=== PATIENT | male | born 1995 | race African-American/Black ===

== ENCOUNTER 2016-09-12 22:44 | Emergency (ER) | payer OTHER ==
[~2016-09-12] VITALS: Ht 172.7 cm; Wt 111.1 kg
[2016-09-12 22:50] VITALS: BP 184/72
[2016-09-12] MEDS ORDERED: HYDR-2758 PO (23:28)
--- NOTE | 2016-09-12 23:28 | PHYS DOC ---
Past Medical History Past Medical History: No Pertinent History Past Surgical History: Other Additional Past Surgical Histo: Eye Alcohol Use: None Drug Use: None Adult General Chief Complaint Chief Complaint: GROIN PAIN HPI HPI Patient is a 21 year old male who presents with left anterior groin/thigh pain since playing basketball a couple days ago. He notes constant achy pain, worse with flexion of hip. He denies numbness, tingling, weakness, fever or chills, leg swelling, discoloration, abdominal pain, testicle pain, scrotal pain, dysuria, diarrhea, constipation, abdominal pain, back pain. Review of Systems Review of Systems Constitutional: Denies fever or chills [] Eyes: Denies change in visual acuity, redness, or eye pain [] HENT: Denies nasal congestion or sore throat [] Respiratory: Denies cough or shortness of breath [] Cardiovascular: No additional information not addressed in HPI [] GI: Denies abdominal pain, nausea, vomiting, bloody stools or diarrhea [] : Denies dysuria or hematuria [] Musculoskeletal: Denies back pain [] Integument: Denies rash or skin lesions [] Neurologic: Denies headache, focal weakness or sensory changes [] Endocrine: Denies polyuria or polydipsia [] Current Medications Current Medications Current Medications Medications (Trade) Dose Ordered Sig/Colby Start Time Stop Time Status Last Admin Dose Admin Acetaminophen/ Hydrocodone Bitart (Lortab 5/325) 1 tab 1X ONCE 09/12/16 23:45 09/12/16 23:45 DC 09/12/16 23:34 1 TAB Allergies Allergies Allergies Coded Allergies Type Severity Reaction Last Updated Verified Penicillins Allergy Intermediate 09/12/16 Yes Physical Exam Physical Exam Constitutional: Well developed, well nourished, no acute distress, non-toxic appearance. [] HENT: Normocephalic, atraumatic, bilateral external ears normal, oropharynx moist, nose normal. [] Eyes: PERRLA, EOMI. [] Neck: Normal range of motion, supple. [] Cardiovascular:Heart rate regular rhythm [] Lungs & Thorax: Bilateral breath sounds clear to auscultation [] Abdomen: Bowel sounds normal, soft, no tenderness. [] Genitourinary: Normal-appearing external genitalia, no rash or discoloration, no swelling, appropriately tender testicles, nontender cords, nontender scrotum , no palpable hernia Skin: Warm, dry, no erythema, no rash. [] Back: No tenderness, no CVA tenderness. [] Extremities: LLE with no obvious deformity or discoloration; Has tenderness along anterior hip flexors with no visual or palpable abnormality; Able to flex/ ex/IR/ER hip, knee full rom, ankle df/pf, toes df/pf; No obvious knee joint laxity with stressing; SILT campoverde/sa/sp/dp/tib distributions; good dp and pt pulses equal bilaterally Neurologic: Alert and oriented X 3, normal motor function, normal sensory function, no focal deficits noted. [] Psychologic: Affect normal, judgement normal, mood normal. [] Current Patient Data Vital Signs Vital Signs Date Time Temp Pulse Resp B/P (MAP) Pulse Ox O2 Delivery O2 Flow Rate FiO2 09/12/16 22:50 98.7 110 18 97 Room Air 98.7 Course & Med Decision Making Course & Med Decision Making Discussed supportive care for likely muscle strain. Return precautions given. He understands and agrees plan. Dragon Disclaimer Dragon Disclaimer This electronic medical record was generated, in whole or in part, using a voice recognition dictation system. Departure Departure Impression: Primary Impression: Left inguinal pain Disposition: HOME, SELF-CARE Condition: STABLE Referrals: NON,STAFF (PCP) Patient Instructions: Muscle Strain, [id number] Additional Instructions: Take Tylenol or ibuprofen as needed for moderate pain. Take hydrocodone as needed for severe pain. Do not drink, drive or operate heavy machinery after taking hydrocodone as it may make you sleepy. Follow-up with your primary care doctor. Return for any concerns. Scripts Hydrocodone Bit/Acetaminophen (HYDROCODONE-APAP 5-325 ) 1 Each Tablet 1 TAB PO PRN Q6HRS Y for PAIN, #6 TAB 0 Refills Prov: Manish COOK MD 09/12/16 Manish COOK MD Sep 12, 2016 23:28
[2016-09-12] MEDS ORDERED: HYDROcodone/APAP 5/325MG 1 TAB TABLET PO ONE (23:45)
== END 2016-09-12 23:36 | disposition home or self-care (01) ==
LOC: ER 22:44
DX: R10.32 Left lower quadrant pain (principal); Z88.0 Allergy status to penicillin
CPT/HCPCS: 99283

== ENCOUNTER 2017-01-08 22:05 | Inpatient (IN) | payer OTHER ==
[~2017-01-08] VITALS: Ht 172.7 cm; Wt 125.8 kg
[~2017-01-08 22:05] MED LIST: HYDR-2758 PO
[2017-01-08] MEDS ORDERED: predniSONE 20 MG TABLET PO ONE (22:30)
[2017-01-08] MEDS ORDERED: ALBUTEROL SULFATE 2.5 MG/3 ML NEBU. CONT NEB ONE (22:30)
[2017-01-08] MEDS ORDERED: IPRATROPIUM BROMIDE 0.5 MG/2.5 ML NEBU. NEB ONE (22:30)
[2017-01-08] MEDS ORDERED: methylPREDNISolone SOD SUCC PF 125 MG/2 ML VIAL. IV ONE (23:45)
[2017-01-08] MEDS ORDERED: IV NORMAL SALINE 1000ML BAG 1,000 ML IV ONE (23:45)
[2017-01-09] MEDS ORDERED: ONDANSETRON PF 4 MG/2 ML VIAL. IV PRN
[2017-01-09] MEDS ORDERED: IV NORMAL SALINE 1000ML BAG 1,000 ML IV SCH
[2017-01-09 00:05] LABS: BASO # 0.1 x10^3/uL (0.0-0.2); BASO % 0 % (0-3); EOS % 3 % (0-3); HEMATOCRIT 46.8 % (39.0-53.0); HEMOGLOBIN 15.6 g/dL (13.0-17.5); LYMPH # 2.5 x10^3/uL (1.0-4.8); LYMPH % 14 % (24-48); MEAN CORPUSCULAR HEMOGLOBIN 30 pg (25-35); MEAN CORPUSCULAR HGB CONC 33 g/dL (31-37); MEAN CORPUSCULAR VOLUME 89 fL (79-100); MONO % 7 % (0-9); NEUT % 75 % (31-73); PLATELET COUNT 285 x10^3/uL (140-400); RED BLOOD COUNT 5.24 x10^6/uL (4.30-5.70); RED CELL DISTRIBUTION WIDTH 13.7 % (11.5-14.5); WHITE BLOOD COUNT 17.3 x10^3/uL (4.0-11.0)
[2017-01-09 00:15] LABS: CALCIUM 9.4 mg/dL (8.5-10.1); CREATININE 0.8 mg/dL (0.7-1.3); GFR 149.1; POTASSIUM 4.1 mmol/L (3.5-5.1)
[2017-01-09 00:21] LABS: ALBUMIN 3.8 g/dL (3.4-5.0); TOTAL BILIRUBIN 0.2 mg/dL (0.2-1.0); TOTAL PROTEIN 7.8 g/dL (6.4-8.2)
--- NOTE | 2017-01-09 00:28 | PHYS DOC ---
Past Medical History Past Medical History: Asthma Past Surgical History: Other Additional Past Surgical Histo: Eye Alcohol Use: None Drug Use: None Adult General Chief Complaint Chief Complaint: ASTHMA HPI HPI Patient is a 21 year old AA male with history of asthma who presents with persistent wheezing, shortness of breath times one day. Patient ran out of his inhaler. States his asthma triggered by seasonal allergies. He is not currently on any medications. No fever chills, nausea vomiting or sweats. No other acute symptoms or complaint. Patient is a nonsmoker. Marijuana wheelchair is [] Review of Systems Review of Systems ROS as per history of present illness. Current Medications Current Medications Current Medications Medications (Trade) Dose Ordered Sig/Colby Start Time Stop Time Status Last Admin Dose Admin Albuterol Sulfate (Ventolin Neb Soln) 10 mg 1X ONCE 01/08/17 22:30 01/08/17 22:31 DC 01/08/17 22:30 10 MG Albuterol/ Ipratropium (Duoneb) 3 ml RTQID 01/09/17 08:00 01/10/17 07:59 Ipratropium Victor (Atrovent) 0.5 mg 1X ONCE 01/08/17 22:30 01/08/17 22:31 DC 01/08/17 22:26 0.5 MG Methylprednisolone Sodium Succinate (SOLU-Medrol 125MG VIAL) 62.5 mg Q6HRS 01/09/17 00:00 Ondansetron HCl (Zofran) 4 mg PRN Q8HRS PRN 01/09/17 00:00 01/09/17 23:59 Prednisone (Prednisone) 60 mg 1X ONCE 01/08/17 22:30 01/08/17 22:31 DC 01/08/17 22:24 60 MG Sodium Chloride 1,000 ml @ 150 mls/hr Q6H40M 01/09/17 00:00 01/09/17 00:01 DC Allergies Allergies Allergies Coded Allergies Type Severity Reaction Last Updated Verified Penicillins Allergy Intermediate 09/12/16 Yes egg Allergy Unknown 01/08/17 Yes Physical Exam Physical Exam Constitutional: Well developed, well nourished, no acute distress, non-toxic appearance. [] HENT: Normocephalic, atraumatic, bilateral external ears normal, oropharynx moist, no oral exudates, nose normal. [] Eyes: PERRLA, EOMI, conjunctiva normal, no discharge. [] Neck: Normal range of motion, no tenderness, supple, no stridor. [] Cardiovascular:Heart rate regular rhythm, no murmur [] Lungs & Thorax: Respirations labored, tachypnea, respiratory rate low 30s, diminished breath sounds bilaterally with coarse inspiratory and expiratory wheezes[] Abdomen: Bowel sounds normal, soft, no tenderness, no masses, no pulsatile masses. [] Skin: Warm, dry, no erythema, no rash. [] Back: No tenderness, no CVA tenderness. [] Extremities: No tenderness, no cyanosis, no clubbing, ROM intact, no edema. [] Neurologic: Alert and oriented X 3, normal motor function, normal sensory function, no focal deficits noted. [] Psychologic: Affect normal, judgement normal, mood normal. [] Current Patient Data Vital Signs Vital Signs Date Time Temp Pulse Resp B/P (MAP) Pulse Ox O2 Delivery O2 Flow Rate FiO2 01/08/17 23:57 117 20 158/70 (99) 93 Room Air 01/08/17 22:08 98.4 98.4 Lab Values Laboratory Tests Test 01/08/17 23:57 White Blood Count 17.3 x10^3/uL (4.0-11.0) H Red Blood Count 5.24 x10^6/uL (4.30-5.70) Hemoglobin 15.6 g/dL (13.0-17.5) Hematocrit 46.8 % (39.0-53.0) Mean Corpuscular Volume 89 fL (79-100) Mean Corpuscular Hemoglobin 30 pg (25-35) Mean Corpuscular Hemoglobin Concent 33 g/dL (31-37) Red Cell Distribution Width 13.7 % (11.5-14.5) Platelet Count 285 x10^3/uL (140-400) Neutrophils (%) (Auto) 75 % (31-73) H Lymphocytes (%) (Auto) 14 % (24-48) L Monocytes (%) (Auto) 7 % (0-9) Eosinophils (%) (Auto) 3 % (0-3) Basophils (%) (Auto) 0 % (0-3) Neutrophils # (Auto) 13.0 x10^3uL (1.8-7.7) H Lymphocytes # (Auto) 2.5 x10^3/uL (1.0-4.8) Monocytes # (Auto) 1.2 x10^3/uL (0.0-1.1) H Eosinophils # (Auto) 0.6 x10^3/uL (0.0-0.7) Basophils # (Auto) 0.1 x10^3/uL (0.0-0.2) Platelet Estimate Pending Sodium Level 141 mmol/L (136-145) Potassium Level 4.1 mmol/L (3.5-5.1) Chloride Level 103 mmol/L (98-107) Carbon Dioxide Level 28 mmol/L (21-32) Anion Gap 10 (6-14) Blood Urea Nitrogen 13 mg/dL (8-26) Creatinine 0.8 mg/dL (0.7-1.3) Estimated GFR (Cockcroft-Gault) 149.1 BUN/Creatinine Ratio 16 (6-20) Glucose Level 125 mg/dL (70-99) H Calcium Level 9.4 mg/dL (8.5-10.1) Total Bilirubin 0.2 mg/dL (0.2-1.0) Aspartate Amino Transferase (AST) 24 U/L (15-37) Alanine Aminotransferase (ALT) 27 U/L (16-63) Alkaline Phosphatase 87 U/L (46-116) Total Protein 7.8 g/dL (6.4-8.2) Albumin 3.8 g/dL (3.4-5.0) Albumin/Globulin Ratio 1.0 (1.0-1.7) Laboratory Tests 01/08/17 23:57 Laboratory Tests 01/08/17 23:57 EKG EKG [] Radiology/Procedures Radiology/Procedures [] Course & Med Decision Making Course & Med Decision Making Pertinent Labs and Imaging studies reviewed. (See chart for details) [Acute asthma exacerbation, moderate persistent. Steroids, nebs given with creased air movement and decreased wheezing.. Patient require hospital admission for further treatment] Dragon Disclaimer Dragon Disclaimer This electronic medical record was generated, in whole or in part, using a voice recognition dictation system. Departure Departure Impression: Primary Impression: Acute asthma exacerbation Disposition: ADMITTED INPATIENT Admitting Physician: Cindy Arvizu Condition: IMPROVED Referrals: NO PCP (PCP) WIL EUCEDA DO Jan 09, 2017 00:28
[2017-01-09] MEDS ORDERED: ALBUTEROL SULFATE 2.5 MG/3 ML NEBU. NEB ONE (00:45)
[2017-01-09] MEDS: methylPREDNISolone SOD SUCC PF 125 MG/2 ML VIAL. IV SCH ×3 (01:10→12:16)
[2017-01-09 01:29] VITALS: BP 140/88
[2017-01-09 03:00] VITALS: BP 135/78
[2017-01-09 04:18] LABS: % BASOS 2 % (0-3); % EOS 4 % (0-5); PLT ESTIMATE ADEQUATE (ADEQUATE)
[2017-01-09 07:00] VITALS: BP 124/64
[2017-01-09] MEDS: IPRATRPIUM/ALBUTEROL 0.5/2.5MG 3 ML NEBU. NEB SCH ×3 (07:26→15:40)
[2017-01-09 11:00] VITALS: BP 121/57
[2017-01-09] MEDS ORDERED: PROVENTIL HFA6.7 GM IH (13:40)
[2017-01-09] MEDS ORDERED: PRED-220 PO (13:40)
[2017-01-09 14:50] VITALS: BP 139/79
--- NOTE | 2017-01-11 19:19 | SSS ---
ADMIT DATE: 01/09/2017 CHIEF COMPLAINT: Asthma exacerbation. HISTORY OF PRESENT ILLNESS: The patient is a 21-year-old -[place] gentleman with longstanding history of asthma, occasional admissions to the hospital, never intubated, who presented with shortness of breath of 1 day. He relates that he had run out of his inhalers a couple of months ago. Asthma is triggered by multiple triggers including temperature changes and seasonal allergies. He denied any fevers and chills on admission. Denies any nausea, vomiting or sweats. He does not smoke tobacco, but occasional marijuana. PAST MEDICAL HISTORY: Asthma. FAMILY HISTORY: No lung disease known. SOCIAL HISTORY: Lives with his family. No tobacco, no alcohol, occasional pot. ALLERGIES: No known drug allergies. MEDICATIONS: MAR reconciled with home medications. REVIEW OF SYSTEMS: The patient relates that he has significantly improved since inhalers and nebulizers in the ER. He received steroids as well. Breathing is essentially back to normal. The rest of organ system review is negative. PHYSICAL EXAMINATION: VITAL SIGNS: From today show blood pressure of 139/79, heart rate of 107, respiratory rate at 18. He is afebrile. GENERAL: This is a morbidly obese 21-year-old -[place] gentleman, alert and oriented, in no acute distress. LUNGS: Clear without any wheezes. HEART: Has regular rate and rhythm, mildly tachy. ABDOMEN: Obese, positive bowel sounds. EXTREMITIES: Show no edema. LABORATORY DATA: CBC with a WBC of 17.3, hemoglobin of 15.6, platelets of 285. Chemistries essentially within normal limits. HOSPITAL COURSE: The patient is a 21-year-old gentleman who presented with asthma exacerbation as he does not have any rescue inhalers at home. He is now much improved and no signs of persistent symptoms. He was therefore sent home on a short course of steroids as well as albuterol inhalers. DISCHARGE DATE: 01/09/2017 DISCHARGE DIAGNOSIS: Asthma exacerbation. DISCHARGE DISPOSITION: To home. DISCHARGE CONDITION: Improved. DISCHARGE MEDICATIONS: Please refer to MAR. DISCHARGE INSTRUCTIONS: The patient will follow up with PCP/molder inflated ball (names provided) within the next month. GERA QUINTERO MD DR: FABIAN/sahil JOB#: [id number] / [id number] KIMI
== END 2017-01-09 17:00 | disposition home or self-care (01) | DRG 202 ==
LOC: ER 22:05 → 4 NORTH 23:40
PROVIDERS: ADMIT Internal Medicine; ATTEND Internal Medicine
DX: J45.901 Unspecified asthma with (acute) exacerbation (principal); Z68.41 Body mass index [BMI] 40.0-44.9, adult; E66.01 Morbid (severe) obesity due to excess calories; F12.90 Cannabis use, unspecified, uncomplicated; Z88.0 Allergy status to penicillin; Z91.012 Allergy to eggs
CPT/HCPCS: 36415; 80053; 85007; 85025; 94250; 94640; 94644; 94760; 96361; 96374; J2930; J7030; J7512; J7613; J7620; J7644; 99285-25